=== PATIENT | male | born 1975 | race Two or more races ===

== ENCOUNTER 2024-04-16 06:55 | Day surgery (SDC) | payer BC, SELFPAY ==
--- NOTE | 2024-04-14 07:00 | EKG_ITS ---
[facility] Test Date: 2024-04-14 Pat Name: HARVEY ALEGRIA Department: Room: - Gender: Male Retail Sales Representative: CLYDE : 1975 Requested By: Livan Quiroga Order Number: [id number] Reading MD: Livan Quiroga Measurements Intervals [place] Rate: 81 P: 22 GA: 151 QRS: 29 QRSD: 91 T: 3 QT: 390 QTc: 453 Interpretive Statements SINUS RHYTHM WITH OCCASIONAL VENTRICULAR PREMATURE COMPLEXES No previous ECG available for comparison /[id number]
[2024-04-14 07:09] VITALS: BMI 37.0
--- NOTE | 2024-04-15 14:05 | SUR.PREOP ---
Pt notified to come in at 0700 tomorrow for surgery.
[2024-04-16] VITALS (8 sets, daily range): BP systolic 99–135; BP diastolic 57–86; PULSE 85–92; RESP 12–19; TEMP 36.4–36.9; O2SAT 95–98; BMI 37.0
[2024-04-16] MEDS: RINGERS LACTATED 1000 ML 1,000 ML 20 ML IV (07:43)
[2024-04-16] MEDS: OXYMETAZOLINE NAS SPRY 0.05% 15 ML BTL NASAL (07:48)
--- NOTE | 2024-04-16 09:50 | PD.SUROPNT ---
Date of Procedure 04/16/24 Pre Op Diagnosis Nasal septal deviation with obstruction Bilateral inferior turbinate hypertrophy Post Op Diagnosis Nasal septal deviation with obstruction Bilateral inferior turbinate hypertrophy Procedure Intranasal septoplasty Bilateral submucous resection of the inferior turbinates Findings Nasal septal deviation to the left as well as enlarged inferior turbinates greater on the right side. Procedure Description Indications: This is a 48-year-old male with chronic nasal congestion with the above findings. Treatment options were discussed and he wished to proceed with surgery. The risk of bleeding infection nasal deformity potential need for further surgery discussed and he wished to proceed. Patient was transferred to the operative suite where he is anesthetized intubated and sterilely draped. Timeout was performed. The nasal septum and inferior turbinates were injected with 1% lidocaine with 1 100,000 dilution epinephrine. Approximately 7 cc total were used. Caudal rim incision was made on the left side of the septum mucosal flap carefully elevated off of the septal cartilage and bone. Inferior tunnel was created as well with caudal elevator. Perpendicular plate was from the quadrangular cartilage with freer elevator small tear occurred posteriorly on the right side. The double-action scissors was used to incise the perpendicular plate and bony fragments were removed. There is still cartilaginous spurring inferiorly and this was removed with a caudal elevator. Quadrangular cartilage was disarticulated off the vomer and repositioned near the midline and then sutured in place with interrupted 4-0 Vicryl sutures. The rim incision was closed with 4-0 plain gut suture. The inferior turbinates reduced in a submucosal plane with a 2.9 mm turbinate shaver blade. Dissection was performed on the insertion and withdrawal first on the right side and then on the left side. Entry sites were cauterized with suction cautery. There is no residual bleeding noted. Morales splints were coated with double antibiotic ointment and inserted and sutured in place with 3-0 silk suture. Patient was then awakened and taken the recovery room in stable condition Anesthesia GETA Pathology / specimen None Estimated Blood Loss 5 Surgeon iLvan Vences DO Surgical Staff Operation Date: 04/16/24 09:15 Case Staff Anesthesiologist: Nate Correa
--- NOTE | 2024-04-16 09:59 | SUR.PHASEI ---
0959 Patient arrived to recovery resting comfortably in [place], on oxygen 10L via oxy mask with an oral airway in place, breathing unlabored, vital signs stable, dressing intact below the nose; nasal drip pad-gauze, paper tape, no bleeding noted, lung sounds clear upon auscultation, bilateral radial pulses present when palpated, report received from Eva MOURA/Dr. Correa and Paul JUAREZ
--- NOTE | 2024-04-16 11:03 | SUR.PHASEII ---
1103 Patient meets discharge criteria from recovery, awake and alert, breathing unlabored, vital signs stable, denies pain, dressing intact; no bleeding noted, patient eating ice chips; tolerating well, denies nausea, patient assisted with dressing into his clothing by his , discharge instructions given to patient and patients , signed discharge instructions. Patient given all his belongings prior to discharge, transported via wheelchair and left in a private vehicle.
== END 2024-04-16 11:03 | disposition home or self-care (01) ==
PROVIDERS: PCP Family Medicine; Referring Provider Otolaryngology; Visit Provider Otolaryngology
PROC: (CPT 30520; principal; 2024-04-16 09:00)
DX: J34.2 Deviated nasal septum (principal); J34.3 Hypertrophy of nasal turbinates; Z01.810 Encounter for preprocedural cardiovascular examination
CPT/HCPCS: 30520; 30140; 93005; A4217; A4649; J0131; J0690; J1100; J2250; J2371; J2405; J2704; J3010; J3490; J7040; J7120; A9270